=== PATIENT | female | born 1995 | race Caucasian/White ===

== ENCOUNTER 2016-03-22 17:08 | Emergency (ER) | payer MEDICAID ==
[2016-03-22 17:22] VITALS: TEMP 98.2
[2016-03-22 17:24] VITALS: BMI 39.1
--- NOTE | 2016-03-22 17:42 | EDPRACDOC ---
<Staci Cai - Last Filed: 03/22/16 19:37> - General Information Mode of Arrival: Car - History of Present Illness Onset: 30 min HPI: C/o substernal chest pain, throat tightness, burning throat, left side pain with nausea and vomiting, and lightheadedness x 45 mins. Denies fever, sob, cough, diarrhea, trauma, changes in urine or BM. Med hx = ashtma, bipolar. Surgical hx = none. LMP 3-4 days ago. - B/C. Chest Wall Injury Location: Reports: Medial Pain Quality: Reports: Pressure Pain Severity: Reports: Moderate Pain Worsens With: Reports: Movement, Other (palpation) Shortness of Breath: None Associated Signs and Symptoms: Reports: Abdominal Pain <Srini Pardo - Last Filed: 03/24/16 05:05> - General Information Chief Complaint: Chest Pain Stated Complaint: CHEST PAIN Home Medications: Home Medications Ergocalciferol (Vitamin D2) [Vitamin D] 50,000 units PO We@0900 03/22/16 Fluoxetine HCl 40 mg PO QAM 03/22/16 Hydroxyzine Pamoate [Vistaril] 25 mg PO BID 03/22/16 Lurasidone HCl [Latuda] 40 mg PO .QEVENING 03/22/16 Allergies/Adverse Reactions: Allergies Allergy/AdvReac Type Severity Reaction Status Date / Time No Known Allergies Allergy Verified 03/22/16 17:20 ED Past Medical History - History Reviewed Yes Nurses notes reviewed and agree except as marked - Patient Medical History Psychological History: Reports: Depression 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 Denies: Hysterectomy - Social Medical History Smoking Status: Heavy tobacco smoker (5 or more cigarettes/day or daily pipe/ cigar) <Srini Pardo - Last Filed: 03/24/16 05:05> EDM Review of Systems - Review of Systems ROS Negative Except as Marked: Yes All systems reviewed and were negative except as marked Throat: Pain Cardiovascular: Chest Pain Gastrointestinal: Nausea, Pain, Vomiting Neurological: Other (lighheaded) Psychiatric: Other (bipolar) <Srini Pardo - Last Filed: 03/24/16 05:05> - Physical Exam Last recorded Vital Signs: Last Vital Signs Temp 98.2 F 03/22/16 17:20 Pulse 79 03/22/16 18:24 Resp 18 03/22/16 18:24 BP 156/77 03/22/16 18:24 Pulse Ox 96 03/22/16 18:24 Oxygen Pulse Oxygen Saturation 96 O2 Device Room Air Oxygen Flow Rate Fraction of Inspired Oxygen ( FIO2) <Staci Cai - Last Filed: 03/22/16 19:37> - Physical Exam Constitutional: No apparent distress, Alert Oriented to: Time, Person, Place Last recorded Vital Signs: Last Vital Signs Temp 98.2 F 03/22/16 17:20 Pulse 74 03/22/16 17:20 Resp 20 03/22/16 17:20 BP 141/82 03/22/16 17:20 Pulse Ox 97 03/22/16 17:20 Oxygen Pulse Oxygen Saturation 97 O2 Device Room Air Oxygen Flow Rate Fraction of Inspired Oxygen ( FIO2) - HEENT Head: Normal Eye Exam: negative: Conjunctival Injection, Scleral Icterus Oropharynx: negative: Drooling TMJ: Normal Nose: No Symptoms Reported Neck: Normal - Respiratory/Cardiovascular Respiratory: Normal - CTA Cardiovascular: Normal - GI Auscultation: Normal Palpation: Normal Tenderness: LUQ - Musculoskeletal Back: Normal Extremities: Normal - Integumentary Skin: Normal - Neurologic Mood Description: Calm Thought: Coherent Perception: Normal <Srini Pardo - Last Filed: 03/24/16 05:05> ED Chest Wall Pain Exam - Chest Wall Pain Chest: Tender Other Findings: pain in chest and left side worse with palpation <Srini Pardo - Last Filed: 03/24/16 05:05> - Re-evaluation Re-evaluation 2 Re-evaluation Time: 19:40 Re-evaluation: General: Pleasant YOUNG FEMALE No acute distress. Neuro: Alert Oriented, calm and cooperative HEENT: Normocephalic atraumatic. Sclerae nonicteric. Extraocular movements intact. Oral mucosa pink and moist. Neck: Supple. Nontender. Good range of motion. No masses. Trachea is midline. No cervical adenopathy. Lungs: Clear to auscultation. No rhonchi or wheezing. Heart: Regular rate and rhythm. No murmur. Abdomen: Soft, nontender, nondistended. No hepatosplenomegaly. No abdominal wall defects or masses. No guarding or rebound. Extremities: no cyanosis clubbing or edema. No palpable deformities. Skin: Warm and dry, no rashesNO SIGNS OF ALLERGIC REACTION - Results Urine Color Yellow 03/22/16 17:55 Urine Clarity Sl cldy 03/22/16 17:55 Urine pH 8.0 (5.0-8.0) 03/22/16 17:55 Ur Specific [place] 1.015 (1.003-1.035) 03/22/16 17:55 Urine Protein Neg (NEG/TRACE) 03/22/16 17:55 Urine Glucose (UA) Neg (NEGATIVE) 03/22/16 17:55 Urine Ketones Neg (NEGATIVE) 03/22/16 17:55 Urine Occult Blood Neg (NEG/TRACE) 03/22/16 17:55 Urine Nitrite Neg (NEGATIVE) 03/22/16 17:55 Urine Bilirubin Neg (NEGATIVE) 03/22/16 17:55 Urine Urobilinogen <2.0 MG/DL (0-1) 03/22/16 17:55 Ur Leukocyte Esterase Trace (NEGATIVE) H 03/22/16 17:55 Urine WBC 0-2 (0-5) 03/22/16 17:55 Ur Epithelial Cells 2+ 03/22/16 17:55 Amorphous Sediment 1+ 03/22/16 17:55 Urine Bacteria 1+ (NEG/FEW) H 03/22/16 17:55 Urine Mucus Occ (NEG/OCC) 03/22/16 17:55 Urine Test Neg (NEGATIVE) 03/22/16 17:55 Lab Results 03/22/16 03/22/16 17:55 17:55 Urine Color Yellow Urine Clarity Sl cldy Urine pH 8.0 Ur Specific [place] 1.015 Urine Protein Neg Urine Glucose (UA) Neg Urine Ketones Neg Urine Occult Blood Neg Urine Nitrite Neg Urine Bilirubin Neg Urine Urobilinogen <2.0 Ur Leukocyte Esterase Trace H Urine WBC 0-2 Ur Epithelial Cells 2+ Amorphous Sediment 1+ Urine Bacteria 1+ H Urine Mucus Occ Urine Test Neg - Diagnostic Imaging Chest Image interpreted by: Radiologist Patient Name: ELIZABET CHOU LOC: ED : 1995 AGE: 20 Order Date:03/22/16 Date of Service:07/01 Report # [id number] Ord Physician: Staci Cai MD Exam # [id number] Emergency Physician: Staci Cai MD Exam(s): [id number] RAD/DG CHEST 2V CLINICAL DATA: Shortness of breath, chest pain EXAM: CHEST 2 VIEW COMPARISON: None. FINDINGS: Lungs are clear. No pleural effusion or pneumothorax. The heart is normal in size. Visualized osseous structures are within normal limits. IMPRESSION: Normal chest radiographs. Electronically Signed By: Richar Mcdaniels M.D. On: 03/22/2016 18:49 Electronically Signed By: Richar Mcdaniels MD Electronically Signed Date/Time: [id number] Dictate Date/Time: 03/22/161848 Technologist: Alis Pérez Transcribed By: Mateusz Transcribed Date/Time: 03/22/161848 <Staci Cai - Last Filed: 03/22/16 19:37> - Departure Disposition: Home Education/Counseling Given To: Patient Education/Counseling Given Regarding: Diagnosis, Treatment, Prognosis <Staci Cai - Last Filed: 03/22/16 19:37> <Srini Pardo - Last Filed: 03/24/16 05:05> - Departure Final Diagnosis: Chest wall pain, Sore throat Instructions: Chest Pain (ED), Chest Wall Pain (ED) Referrals: None,No Provider [Primary Care Provider] - One Week Prescriptions: No Action Ergocalciferol (Vitamin D2) [Vitamin D] 50,000 units PO We@0900 Lurasidone HCl [Latuda] 40 mg PO .QEVENING Fluoxetine HCl 40 mg PO QAM Hydroxyzine Pamoate [Vistaril] 25 mg PO BID Additional Instructions: ZANTAC OVER THE COUNTER NEEDED.
[2016-03-22 18:27] LABS: AMORPHOUS 1+; LEUKOCYTES/URINE TRACE (NEGATIVE); NITRITE/URINE NEG (NEGATIVE); URINE OCCULT BLOOD NEG (NEG/TRACE); WBC/URINE 0-2 (0-5)
--- NOTE | 2016-03-22 18:52 | DIRPT ---
CLINICAL DATA: Shortness of breath, chest pain EXAM: CHEST 2 VIEW COMPARISON: None. FINDINGS: Lungs are clear. No pleural effusion or pneumothorax. The heart is normal in size. Visualized osseous structures are within normal limits. IMPRESSION: Normal chest radiographs. Electronically Signed By: Richar Mcdaniels M.D. On: 03/22/2016 18:49
[2016-03-22] MEDS ORDERED: GI COCKTAIL 30 ML DOSE PO ONE (19:39)
[2016-03-22] MEDS ORDERED: RANITIDINE 150 MG TAB PO ONE (19:40)
[2016-03-22] MEDS ORDERED: PREDNISONE 50 MG TAB PO ONE (19:41)
[2016-03-22] MEDS ORDERED: PREDNISONE 20 MG TAB PO ONE (20:00)
[2016-03-22 20:08] VITALS: BP 130/77; PULSE 85
== END 2016-03-22 20:07 | disposition home or self-care (01) ==
LOC: ED 17:08
DX: R07.89 Other chest pain (principal); J02.9 Acute pharyngitis, unspecified
CPT/HCPCS: 71020; 81001; 81025; 93005; 99284; J3490